=== PATIENT | male | born 1955 | race Caucasian/White ===

== ENCOUNTER 2022-11-09 08:42 | Emergency (ER) | payer OTHER ==
[~2022-11-09] VITALS: Ht 185.4 cm; Wt 113.6 kg
[2022-11-09 09:18] LABS: Basophils # (auto) 0 10 ^3/uL (0-0.2); Basophils % (auto) 0.5 % (0.0-2.0); Eosinophils # (auto) 0.3 10 ^3/uL (0-0.8); Eosinophils % (auto) 2.6 % (0.0-7.0); Hematocrit 46.2 % (41.0-53.0); Hemoglobin 15.9 g/dL (13.5-17.5); Mean Corpuscular Hemoglobin 28.8 pg (28.0-32.0); Mean Corpuscular Hgb Conc. 34.5 g/dL (32.0-36.0); Mean Corpuscular Volume 83.4 fL (80.0-100.0); Monocytes # (auto) 0.5 10 ^3/uL (0-1.3); Neutrophils # (auto) 8.6 10 ^3/uL (1.6-8.6); Neutrophils % (auto) 81.9 % (37.0-80.0); Red Blood Cells 5.53 10^6/uL (4.5-5.90); Red Cell Distribution Width 13.6 % (11.8-14.3); White Blood Cell 10.5 10^3/uL (4.4-10.8)
[2022-11-09 09:28] LABS: Urine Bacteria NONE SEEN /hpf (None Seen); Urine Blood Negative /uL (Negative); Urine Specific Gravity 1.013 (1.001-1.035); Urine WBC 1 /hpf (0 - 3)
[2022-11-09 09:31] LABS: Albumin 4.1 g/dL (3.4-5.0); Calcium 8.9 mg/dL (8.5-10.1); Potassium 4.2 mmol/L (3.5-5.1)
[2022-11-09 09:34] LABS: BUN/Creatinine Ratio 18.9; Bilirubin, Total 0.8 mg/dL (0.2-1.0); Total Protein 7.2 g/dL (6.4-8.2)
[2022-11-09 10:24] VITALS: BP 109/73
== END 2022-11-09 11:47 | disposition home or self-care (01) ==
LOC: ER 08:42
DX: R33.9 Retention of urine, unspecified (principal); Z20.822 Contact with and (suspected) exposure to COVID-19
CPT/HCPCS: 36415; 51701; 51702; 80053; 81001; 85025; 87426; 93005

== ENCOUNTER 2023-01-16 04:55 | Emergency (ER) | payer OTHER ==
[~2023-01-16] VITALS: Ht 185.4 cm; Wt 109.0 kg
[2023-01-16] MEDS ORDERED: TAM04C PO (07:00)
[2023-01-16 07:23] VITALS: BP 118/74
[2023-01-16 08:32] LABS: Urine Bacteria NONE SEEN /hpf (None Seen); Urine Blood 1+ /uL (Negative); Urine Specific Gravity 1.011 (1.001-1.035); Urine WBC 1 /hpf (0 - 3)
== END 2023-01-16 08:15 | disposition home or self-care (01) ==
LOC: ER 04:55
DX: R33.9 Retention of urine, unspecified (principal); I10 Essential (primary) hypertension
CPT/HCPCS: 51702; 81001; 99284; J7030

== ENCOUNTER 2023-02-15 17:55 | Emergency (ER) | payer OTHER ==
[~2023-02-15] VITALS: Ht 185.4 cm; Wt 104.9 kg
[~2023-02-15 17:55] MED LIST: TAM04C PO
[2023-02-15 19:24] LABS: Urine Bacteria NONE SEEN /hpf (None Seen); Urine Blood Negative /uL (Negative); Urine Specific Gravity 1.016 (1.001-1.035); Urine WBC <1 /hpf (0 - 3)
[2023-02-15] MEDS ORDERED: ONDANSETRON ODT 4 MG TAB PO ONE (20:30)
[2023-02-15] MEDS ORDERED: HYDROcodone-ACET 10/325MG TAB PO ONE (20:30)
[2023-02-15 21:27] LABS: Basophils # (auto) 0 10 ^3/uL (0-0.2); Basophils % (auto) 0.2 % (0.0-2.0); Eosinophils # (auto) 0.3 10 ^3/uL (0-0.8); Hematocrit 49.4 % (41.0-53.0); Hemoglobin 16.6 g/dL (13.5-17.5); Lymphocytes # (auto) 0.8 10 ^3/uL (0.4-5.4); Lymphocytes % (auto) 9.4 % (10.0-50.0); Mean Corpuscular Hemoglobin 27.8 pg (28.0-32.0); Mean Corpuscular Hgb Conc. 33.6 g/dL (32.0-36.0); Mean Corpuscular Volume 82.7 fL (80.0-100.0); Monocytes # (auto) 0.6 10 ^3/uL (0-1.3); Monocytes % (auto) 7.2 % (0.0-12.0); Neutrophils # (auto) 7.1 10 ^3/uL (1.6-8.6); Neutrophils % (auto) 80.2 % (37.0-80.0); Nucleated Red Blood Cells % 0.5 %; Red Blood Cells 5.98 10^6/uL (4.5-5.90); Red Cell Distribution Width 13.7 % (11.8-14.3); White Blood Cell 8.8 10^3/uL (4.4-10.8)
[2023-02-15 21:55] LABS: INR 1.96 (0.9-1.15); Partial Thromboplastin Time 38.6 sec (24.6-33.4)
[2023-02-15 22:06] LABS: Calcium 9.7 mg/dL (8.5-10.1); Potassium 4.1 mmol/L (3.5-5.1)
[2023-02-15 22:09] LABS: BUN/Creatinine Ratio 19.1 (10.0-20.0)
[2023-02-15 22:11] LABS: Bilirubin, Total 0.8 mg/dL (0.2-1.0); Total Protein 7.9 g/dL (6.4-8.2)
[2023-02-16 00:59] VITALS: BP 120/73
== END 2023-02-16 01:03 | disposition home or self-care (01) ==
LOC: ER 17:55
DX: M25.511 Pain in right shoulder (principal); R07.89 Other chest pain; I48.91 Unspecified atrial fibrillation; E86.0 Dehydration; E87.1 Hypo-osmolality and hyponatremia; R73.9 Hyperglycemia, unspecified; I10 Essential (primary) hypertension; Z79.899 Other long term (current) drug therapy
CPT/HCPCS: 36415; 71045; 73030; 80053; 81001; 82962; 84484; 85025; 85610; 85730; 99284; Q0162